=== PATIENT | female | born 1960 | race Caucasian/White ===

== ENCOUNTER → 2017-10-17 | Outpatient (CLI) | payer OTHER | END | disposition home or self-care (01) | LOC: KCIC MAMMO 08:07 | DX: Z12.31 Encounter for screening mammogram for malignant neoplasm of breast (principal) | CPT/HCPCS: 77063; 77067 ==

== ENCOUNTER → 2019-04-22 | Outpatient (CLI) | payer OTHER ==
--- NOTE | 2019-04-22 17:30 | KCIC ---
Bilateral digital screening mammograms with 3-D tomosynthesis: Reason for examination: Routine screening. Comparison is made to previous studies dated 10/17/2017 and 12/15/2015. Bilateral mammograms in CC and oblique projections were obtained with 2-D imaging and 3-D tomosynthesis imaging on a Siemens Inspiration unit and reviewed on the workstation. Interpretation was made with the benefit of CAD. The skin and nipples show no abnormalities. No abnormal axillary lymph nodes are seen. The breast parenchyma shows scattered fatty and fibroglandular density. (Breast density: Category B.) There are no dominant masses, suspicious calcifications or architectural distortion. Impression: No evidence of malignancy. Recommend routine screening. BI-RAD Category 1: Negative. "Our facility is accredited by the [employer] Mammography Program." This patient's information has been entered into a reminder system for the patient to be notified with the results of her examination and a target date for the next mammogram. Electronically signed by: Emily Degroot MD (04/22/2019 5:27 PM) [facility]
== END | disposition home or self-care (01) ==
LOC: KCIC MAMMO 15:51
PROVIDERS: ATTEND Family Medicine
DX: Z12.31 Encounter for screening mammogram for malignant neoplasm of breast (principal); N64.89 Other specified disorders of breast
CPT/HCPCS: 77063; 77067

== ENCOUNTER 2021-11-22 14:11 | Inpatient (IN) | payer OTHER ==
[2021-11-22] VITALS (8 sets, daily range): BP systolic 99–137; BP diastolic 36–57
[~2021-11-22] VITALS: Ht 162.6 cm; Wt 67.6 kg
[2021-11-22] MEDS ORDERED: IV NORMAL SALINE 1000ML BAG 1,000 ML IV SCH (15:15)
[2021-11-22] MEDS ORDERED: FAMOTIDINE 20 MG/2 ML VIAL IVP ONE (15:30)
[2021-11-22] MEDS ORDERED: ASPIRIN 325 MG TABLET PO ONE (15:30)
--- NOTE | 2021-11-22 15:31 | PHYS DOC ---
Past Medical History Past Surgical History: No Surgical History General Adult EDM: Chief Complaint: CHEST PAIN HPI: HPI: Patient is a 61 year old female who presents with chest pressure to the left and slightly mid chest area that she states will come and go for the last 4 days or so. She states she has had exertional shortness of breath since November 02 and when she is up and moving around she has to sit down and catch her breath because she gets very fatigued. She did had Covid back in October. States there was no major complications from that. Patient states that she is also noticed in the last 2 weeks that her left lower leg will swell up but if she puts it up the swelling gets better. She denies any pain with walking, calf pain, dizziness, syncope, fever, abdominal pain, nausea, vomiting, diarrhea, numbness or tingling, focal weakness, headache. Patient has a history of hypertension, Covid and hypothyroidism. Review of Systems: Review of Systems: Constitutional: Denies fever or chills. [] Eyes: Denies change in visual acuity. [] HENT: Denies nasal congestion or sore throat. [] Respiratory: Denies cough or + exertional shortness of breath. [] Cardiovascular: + chest pain pressure or +right lower extremity edema. [] GI: Denies abdominal pain, nausea, vomiting, bloody stools or diarrhea. [] : Denies dysuria. [] Musculoskeletal: Denies back pain or joint pain. + Generalized fatigue [] Integument: Denies rash. [] Neurologic: Denies headache, focal weakness or sensory changes. [] Endocrine: Denies polyuria or polydipsia. [] Lymphatic: Denies swollen glands. [] Psychiatric: Denies depression or anxiety. [] Heart Score: C/O Chest Pain: Yes HEART Score for Chest Pain: HEART Score for Chest Pain Response (Comments) Value History Moderately Suspicious 1 ECG Nonspecific Repolarizatio 1 Age >45 - < 65 1 Risk Factors 1 or 2 Risk Factors 1 Troponin < Normal Limit 0 Total 4 Risk Factors: Risk Factors: DM, Current or recent (<one month) smoker, HTN, HLP, family hist ory of CAD, obesity. Risk Scores: Score 0 - 3: 2.5% MACE over next 6 weeks - Discharge Home Score 4 - 6: 20.3% MACE over next 6 weeks - Admit for Clinical Observation Score 7 - 10: 72.7% MACE over next 6 weeks - Early Invasive Strategies Current Medications: Current Medications Medications (Trade) Dose Ordered Sig/Marshal Start Time Stop Time Status Last Admin Dose Admin Sodium Chloride 1,000 ml @ 1,000 mls/hr Q1H 11/22/21 15:15 11/22/21 16:14 Allergies: Allergies: Allergies Coded Allergies Type Severity Reaction Last Updated Verified No Known Drug Allergies 11/22/21 No Physical Exam: PE: Constitutional: Well developed, well nourished, no acute distress, non-toxic appearance. [] HENT: Normocephalic, atraumatic, bilateral external ears normal, oropharynx moist, no oral exudates, nose normal. [] Eyes: PERRLA, EOMI, conjunctiva normal, no discharge. [] Neck: Normal range of motion, no tenderness, supple, no stridor. [] Cardiovascular:Heart rate tachycardia regular rhythm, no murmur [] Lungs & Thorax: Bilateral upper breath sounds clear lower diminished to auscultation [] Abdomen: Bowel sounds normal, soft, no tenderness, no masses, no pulsatile masses. [] Skin: Warm, dry, no erythema, no rash. [] Back: No tenderness, no CVA tenderness. [] Extremities: No tenderness, no cyanosis, no clubbing, ROM intact, right lower extremity 2+ edema. No calf pain. Negative Homans' sign. [] Neurologic: Alert and oriented X 3, normal motor function, normal sensory function, no focal deficits noted. [] Psychologic: Affect normal, judgement normal, mood normal. [] Current Patient Data: Vital Signs: Vital Signs Date Time Temp Pulse Resp B/P (MAP) Pulse Ox O2 Delivery O2 Flow Rate FiO2 11/22/21 14:12 98.1 119 22 150/62 (91) 100 Room Air 98.1 EKG: EK and read by Dr. Kathleen as sinus tachycardia at 114, diffuse ST depressions, no STEMI Radiology/Procedures: Radiology/Procedures: [] Impression: [facility] [address] [place], [place] [id number] IMAGING REPORT Signed PATIENT: DIMITRI YEN ACCOUNT: [id number] : 1960 LOCATION: ER AGE: 61 SEX: F EXAM STATUS: REG ER ORD. PHYSICIAN: MILES ZIMMERMAN APRN REASON: SWELLING PROCEDURE: VENOUS LOWER EXTREMITY RIGHT EXAM: Right lower extremity venous Doppler. HISTORY: Right lower extremity pain/swelling. COMPARISON: None. FINDINGS: Grayscale and Doppler analysis of the right lower extremity deep venous system was performed with graded compression and augmentation. The common femoral, greater saphenous, superficial femoral, popliteal and calf veins were assessed. Occlusive deep venous thrombosis extends from the right popliteal vein to the calf veins. IMPRESSION: 1. Occlusive deep venous thrombosis within the right popliteal vein extending to the calf veins. These findings were called to Dr. Zimmerman by José Luis Rodriguez on 11/22/2021 at 4:04 PM. Electronically signed by: Silvano Rodriguez MD (11/22/2021 4:04 PM) [facility] DICTATED and SIGNED BY: SANTOS RODRIGUEZ MD DATE: 11/22/21 [id number] 0 [facility] [address] [place], [place] [id number] IMAGING REPORT Signed PATIENT: DIMITRI YEN ACCOUNT: [id number] : 1960 LOCATION: ER AGE: 61 SEX: F EXAM STATUS: REG ER ORD. PHYSICIAN: MILES ZIMMERMAN APRN REASON: CHEST PAIN, SOA PROCEDURE: PORTABLE CHEST 1V EXAM: Chest, single view. HISTORY: Chest pain. Shortness of air. COMPARISON: None. FINDINGS: A frontal view of the chest is obtained. There is no infiltrate, pleural effusion or pneumothorax. The heart is normal in size. IMPRESSION: No acute pulmonary finding. Electronically signed by: Flakita Correia MD (11/22/2021 3:46 PM) [id number] DICTATED and SIGNED BY: FLAKITA CORREIA MD DATE: 11/22/21 [id number] 0 [facility] [address] [place], [place] [id number] IMAGING REPORT Signed PATIENT: DIMITRI YEN ACCOUNT: [id number] : 1960 LOCATION: ER AGE: 61 SEX: F EXAM STATUS: REG ER ORD. PHYSICIAN: MILES ZIMMERMAN APRN REASON: CHEST PAIN, SOA, TACHYCARDIA PROCEDURE: CT ANGIO CHEST W ABD PEL W/ Exam: CT of chest, abdomen and pelvis with contrast INDICATION: Chest pain, short of air, tachycardia TECHNIQUE: Sequential axial images through the chest, abdomen and pelvis obtained following the administration of 90 mL of Isovue-370 IV contrast. Sagittal and coronal reformatted images were reconstructed from the axial data and reviewed. 3-D reformatted images were reconstructed from the axial data and reviewed. Exposure: One or more of the following in the visualized dose reduction techniques were utilized for this examination: 1. Automated exposure control 2. Adjustment of the MA and/or KV according to patient size 3. Use of iterative of reconstructive technique Comparisons: Chest x-ray same day FINDINGS: Visualized portions of the thyroid are unremarkable. No enlarged mediastinal lymph nodes are identified. Heart size is normal. No pericardial effusion. Mild coronary artery calcifications. Thoracic aorta has normal course and caliber. Pulmonary artery is not enlarged. No pulmonary embolus identified within the main, lobar or segmental pulmonary arteries. Airways are patent. Patchy groundglass opacity noted at the dependent portion of the left lower lobe. No pneumothorax. No suspicious lung nodules. No pleural effusion or thickening. Liver, spleen, pancreas, gallbladder and adrenals are unremarkable. There is moderate right-sided hydronephrosis with abrupt transition of the dilated ureter at the right ureteropelvic junction. No renal or ureteral calculi are identified. Bladder is partially distended and not well evaluated. Uterus is not enlarged. No abnormal adnexal mass. Large and small bowel are unremarkable. Appendix is normal. No free intra- abdominal air or fluid. No obstruction. Abdominal aorta has a normal course and caliber. Abdominal vasculature is patent. No enlarged intra-abdominal lymph nodes are identified. No suspicious osseous lesions or acute fractures. IMPRESSION: 1. No pulmonary embolus identified within the main, lobar or segmental pulmonary arteries. 2. Moderate right-sided hydronephrosis with findings of UPJ obstruction. Stone is not identified, may relate to stricture. 3. Subtle patchy groundglass opacity noted at the left lower lobe may be infectious or inflammatory in etiology. Electronically signed by: Tatyana Hodges MD (11/22/2021 4:52 PM) [facility] DICTATED and SIGNED BY: TATYANA HODGES MD DATE: 11/22/21 [id number] 0 Course & Med Decision Making: Course & Med Decision Making Pertinent Labs and Imaging studies reviewed. (See chart for details) COVID-19 CRITERIA: The patient was evaluated during the global COVID-19 pandemic, and that diagnosis was suspected/considered upon their initial presentation. Their evaluation, treatment and testing was consistent with current guidelines for patients who present with complaints or symptoms that may be related to COVID-19. See HPI. Alert and oriented x4. Ambulatory to steady gait. Speaks in full clear sentences. Ambulatory with a steady gait. She is tachycardic. She is not on any kind of blood thinner. Left lower extremity 2+ swelling. No calf tenderness and negative Homans' sign. Pedal pulse strong present. Cap refill less than 2 seconds. Skin pink warm and dry. Lungs are clear in upper lobes and diminished in lower lobes. Patient's hemoglobin is low at 5.4. She states that she does not have any. Sent has not had any heavy vaginal bleeding. She states she does have some hemorrhoids and about 4 days ago she noticed a little bit of blood in the toilet but states that happens from time to time. She states she has not had any since then. She denies seeing any blood in her urine. She denies any abdominal pain or nausea and vomiting. She does not take blood thinners. Because of this I have held the aspirin that I was going to give her for chest pain. Also the ultrasound of her left lower extremity shows a DVT. Rectal Exam: Normal tone, No mass, Positive control Stool: Brown Guaiac: Negative Per Dr Kathleen ok to hold off on heparin until patient starts receiving blood. Patient is admitted to the hospitalist. [] Marcy Disclaimer: Marcy Disclaimer: This electronic medical record was generated, in whole or in part, using a voice recognition dictation system. COVID-19 Patient Risks: Age 65 or older: No Sign of co-morbidity: Yes Exp to person + for COVID: No Exp to PUI: No Travel from affected area: No Lower respiratory symptoms: Yes Fever: No Other: No PPE Use: Full PPE with N95 mask or PAPR: Yes Departure Departure Impression: Primary Impression: Low hemoglobin Additional Impressions: DVT (deep venous thrombosis) Qualified Codes: I82.432 - Acute embolism and thrombosis of left popliteal vein UPJ stricture, acquired Hydronephrosis Qualified Codes: Q62.11 - Congenital occlusion of ureteropelvic junction Disposition: 09 ADMITTED INPATIENT Admitting Physician: WENCESLAO Condition: STABLE Referrals: WALDO NAVARRETE MD (PCP) MILES ZIMMERMAN APRN Nov 22, 2021 15:31
[2021-11-22 15:32] LABS: BASO % 0 % (0-3); EOS # 0.1 x10^3/uL (0.0-0.7); EOS % 2 % (0-3); HEMATOCRIT 14.8 % (36.0-47.0); LYMPH # 0.8 x10^3/uL (1.0-4.8); LYMPH % 16 % (24-48); MEAN CORPUSCULAR HEMOGLOBIN 48 pg (25-35); MEAN CORPUSCULAR HGB CONC 37 g/dL (31-37); MEAN CORPUSCULAR VOLUME 132 fL (79-100); MONO # 0.2 x10^3/uL (0.0-1.1); MONO % 4 % (0-9); NEUT # 3.8 x10^3/uL (1.8-7.7); NEUT % 78 % (31-73); PLATELET COUNT 247 x10^3/uL (140-400); RED BLOOD COUNT 1.12 x10^6/uL (3.50-5.40); RED CELL DISTRIBUTION WIDTH 14.3 % (11.5-14.5); WHITE BLOOD COUNT 4.8 x10^3/uL (4.0-11.0)
[2021-11-22 15:43] LABS: CALCIUM 8.3 mg/dL (8.5-10.1); CREATININE 0.8 mg/dL (0.6-1.0); GFR 72.9; POTASSIUM 3.6 mmol/L (3.5-5.1)
[2021-11-22 15:45] LABS: HEMOGLOBIN 5.4 g/dL (12.0-15.5)
[2021-11-22 15:48] LABS: ALBUMIN 3.9 g/dL (3.4-5.0); ALBUMIN/GLOBULIN RATIO 1.1 (1.0-1.7); TOTAL BILIRUBIN 1.5 mg/dL (0.2-1.0); TOTAL PROTEIN 7.3 g/dL (6.4-8.2)
--- NOTE | 2021-11-22 15:49 | RAD ---
EXAM: Chest, single view. HISTORY: Chest pain. Shortness of air. COMPARISON: None. FINDINGS: A frontal view of the chest is obtained. There is no infiltrate, pleural effusion or pneumo thorax. The heart is normal in size. IMPRESSION: No acute pulmonary finding. Electronically signed by: Flakita Zhang MD (11/22/2021 3:46 PM) [id number]
[2021-11-22] MEDS ORDERED: CONTRAST GIVEN. MC PRN (16:00)
[2021-11-22] MEDS ORDERED: IOHEXOL 350 MG/ML 100 ML VIAL. IV ONE (16:00)
--- NOTE | 2021-11-22 16:07 | RAD ---
EXAM: Right lower extremity venous Doppler. HISTORY: Right lower extremity pain/swelling. COMPARISON: None. FINDINGS: Grayscale and Doppler analysis of the right lower extremity deep venous system was performe d with graded compression and augmentation. The common femoral, greater saphenous, superficial femora l, popliteal and calf veins were assessed. Occlusive deep venous thrombosis extends from the right popliteal vein to the calf veins. IMPRESSION: 1. Occlusive deep venous thrombosis within the right popliteal vein extending to the calf veins. These findings were called to Dr. Zimmerman by José Luis Rodriguez on 11/22/2021 at 4:04 PM. Electronically signed by: Silvano Rodriguez MD (11/22/2021 4:04 PM) [facility]
[2021-11-22 16:41] LABS: FECAL OB PT NEGATIVE (NEG)
--- NOTE | 2021-11-22 16:55 | RAD ---
Exam: CT of chest, abdomen and pelvis with contrast INDICATION: Chest pain, short of air, tachycardia TECHNIQUE: Sequential axial images through the chest, abdomen and pelvis obtained following the admin istration of 90 mL of Isovue-370 IV contrast. Sagittal and coronal reformatted images were reconstruc luis enrique from the axial data and reviewed. 3-D reformatted images were reconstructed from the axial data a nd reviewed. Exposure: One or more of the following in the visualized dose reduction techniques were utilized for this examination: 1. Automated exposure control 2. Adjustment of the MA and/or KV according to patient size 3. Use of iterative of reconstructive technique Comparisons: Chest x-ray same day FINDINGS: Visualized portions of the thyroid are unremarkable. No enlarged mediastinal lymph nodes are identifi ed. Heart size is normal. No pericardial effusion. Mild coronary artery calcifications. Thoracic aorta sin s normal course and caliber. Pulmonary artery is not enlarged. No pulmonary embolus identified within the main, lobar or segmental pulmonary arteries. Airways are patent. Patchy groundglass opacity noted at the dependent portion of the left lower lobe. No pneumothorax. No suspicious lung nodules. No pleural effusion or thickening. Liver, spleen, pancreas, gallbladder and adrenals are unremarkable. There is moderate right-sided hydronephrosis with abrupt transition of the dilated ureter at the righ t ureteropelvic junction. No renal or ureteral calculi are identified. Bladder is partially distended and not well evaluated. Uterus is not enlarged. No abnormal adnexal ma ss. Large and small bowel are unremarkable. Appendix is normal. No free intra-abdominal air or fluid. No obstruction. Abdominal aorta has a normal course and caliber. Abdominal vasculature is patent. No enlarged intra-abdominal lymph nodes are identified. No suspicious osseous lesions or acute fractures. IMPRESSION: 1. No pulmonary embolus identified within the main, lobar or segmental pulmonary arteries. 2. Moderate right-sided hydronephrosis with findings of UPJ obstruction. Stone is not identified, ma y relate to stricture. 3. Subtle patchy groundglass opacity noted at the left lower lobe may be infectious or inflammatory in etiology. Electronically signed by: Tatyana Ward MD (11/22/2021 4:52 PM) [facility]
[2021-11-22 17:08] LABS: PROTHROMBIN TIME PATIENT 13.5 SEC (11.7-14.0)
[2021-11-22] MEDS ORDERED: ONDANSETRON PF 4 MG/2 ML VIAL. IVP PRN ×2 (17:15→19:30)
[2021-11-22] MEDS ORDERED: ACETAMINOPHEN 325 MG TABLET. PO PRN ×2 (17:15→19:30)
[2021-11-22] MEDS ORDERED: CYANOCOBALAMIN (VITAMIN B-12) 1,000 MCG/ML VIAL. IM ONE (19:00)
[2021-11-22] MEDS ORDERED: HEPARIN for IV BOLUS 10,000 UNIT/10 ML VIAL. IV PRN ×2 (19:15)
--- NOTE | 2021-11-22 19:23 | PDOC1 ---
History and Physical Date of Service: DOS: DATE: 11/22/21 TIME: 19:12 Chief Complaint: Chief Complain: sob, fatigue History of Present Illness: HPI: Patient is 61-year-old female who presented to the emergency room today due to chest pain for 3 to 5 days and shortness of breath and weakness that has been going on for about a month. Patient reports that she had Covid in October and has had exertional shortness of breath ever since then. Frequently has to sit down to catch her breath when doing any activity. Patient also reports that since this she has noticed left lower extremity swelling. Works from home sits down most of the day and notices that her left leg in particular will be notably swollen by the end of the day. However reports with elevation the swelling improves. In ER duplex scan showed left lower extremity DVT. On presentation patient also notably anemic. Hemoglobin around 5.4. Patient denies any known bleeding anywhere. Work-up showed MCV 132 and a low B12. Patient has had decreased p.o. intake ever since her Covid episode. Denies any vegetarian diet. Says she frequently eats meat but has been eating much less ever since COVID as it just does not sound good to her. Past Medical/Surgical History: PMH/PSH: Hypothyroid Allergies: Allergies: Coded Allergies: No Known Drug Allergies (Unverified , 11/22/21) Family History: Family History: Hypertension Social History: Social History: Denies alcohol tobacco drug use Current Medications: Current Medications Current Medications Sodium Chloride 1,000 ml @ 1,000 mls/hr Q1H IV Last administered on 11/22/21at 15:32; Start 11/22/21 at 15:15; Stop 11/22/21 at 16:14; Status DC Aspirin (Dario Aspirin) 325 mg 1X ONCE PO ; Start 11/22/21 at 15:30; Stop at 15:51; Status DC Famotidine (Pepcid Vial) 20 mg 1X ONCE IVP Last administered on 11/22/21at 15:49; Start 11/22/21 at 15:30; Stop 11/22/21 at 15:32; Status DC Iohexol (Omnipaque 350 Mg/ml) 90 ml 1X ONCE IV Last administered on 11/22/21at 16:03; Start 11/22/21 at 16:00; Stop 11/22/21 at 16:01; Status DC Info (CONTRAST GIVEN -- Rx MONITORING) 1 each PRN DAILY PRN MC SEE COMMENTS; Start 11/22/21 at 16:00; Stop 11/24/21 at 15:59 Ondansetron HCl (Zofran) 4 mg PRN Q8HRS PRN IVP NAUSEA/VOMITING; Start 11/22/21 at 17:15; Stop 11/23/21 at 17:14 Acetaminophen (Tylenol) 650 mg PRN Q4HRS PRN PO FEVER > 100.3'F; Start 11/22/21 at 17:15; Stop 11/23/21 at 17:14 Cyanocobalamin (Vitamin B-12 Inj) 1,000 mcg 1X ONCE IM ; Start 11/22/21 at 19:00; Stop 11/22/21 at 19:01; Status DC Vitamin B Complex (Folbic Tablet) 1 tab DAILY PO ; Start 11/23/21 at 09:00 ROS: Review of Systems Review of System Unless noted in HPI 14 point review of systems was negative Physical Exam: Vital Signs: Vital Signs Date Time Temp Pulse Resp B/P (MAP) Pulse Ox O2 Delivery O2 Flow Rate FiO2 11/22/21 18:50 106 16 127/48 11/22/21 18:46 98.8 98.8 11/22/21 16:12 100 Room Air Physcial Exam: GEN: No apparent distress. Alert and oriented HEENT: Normal cephalic, atraumatic, external auditory canals are patent EYES: Extraocular muscles are intact, pupil are equally round and reactive to light and accommodation MUSCULOSKELETAL: Well developed , well nourished, good range of motion ENDOCRINE: No thyromegaly was palpated LYMPHATICS: No cervical chain or axillary nodes were noted HEMATOPOIETIC: No bruising NECK: Supple, no JVD, no thyromegaly was noted LUNGS: Clear to auscultation in all lung vogt without rhonchi or wheezing HEART: RRR, S!, S2 present. Peripheral pulses intact, no obvious murmurs noted ABDOMEN: Soft, nontender. Positive bowel sounds, no organomegaly, normal bowel sounds EXTREMITIES: Without clubbing, cyanosis, or edema. Pedal pulses intact. Negative Homans sign NEUROLOGIC: Normal speech and tone. A&O x 3, moves all extremities, no obvious focal deficits PSYCHIATRIC: Normal affect, normal mood. Stable SKIN: No ulcerations or rashes, good skin turgor, no jaundice VASCULAR: Good capillary refill, neurovascular bundle appears to be intact Labs: Labs: Laboratory Tests Test 11/22/21 15:10 11/22/21 16:28 11/22/21 18:40 White Blood Count 4.8 x10^3/uL (4.0-11.0) Red Blood Count 1.12 x10^6/uL (3.50-5.40) Hemoglobin 5.4 g/dL (12.0-15.5) Hematocrit 14.8 % (36.0-47.0) Mean Corpuscular Volume 132 fL (79-100) Mean Corpuscular Hemoglobin 48 pg (25-35) Mean Corpuscular Hemoglobin Concent 37 g/dL (31-37) Red Cell Distribution Width 14.3 % (11.5-14.5) Platelet Count 247 x10^3/uL (140-400) Neutrophils (%) (Auto) 78 % (31-73) Lymphocytes (%) (Auto) 16 % (24-48) Monocytes (%) (Auto) 4 % (0-9) Eosinophils (%) (Auto) 2 % (0-3) Basophils (%) (Auto) 0 % (0-3) Neutrophils # (Auto) 3.8 x10^3/uL (1.8-7.7) Lymphocytes # (Auto) 0.8 x10^3/uL (1.0-4.8) Monocytes # (Auto) 0.2 x10^3/uL (0.0-1.1) Eosinophils # (Auto) 0.1 x10^3/uL (0.0-0.7) Basophils # (Auto) 0.0 x10^3/uL (0.0-0.2) Prothrombin Time 13.5 SEC (11.7-14.0) Prothromb Time International Ratio 1.0 (0.8-1.1) Activated Partial Thromboplast Time 26 SEC (24-38) Sodium Level 136 mmol/L (136-145) Potassium Level 3.6 mmol/L (3.5-5.1) Chloride Level 99 mmol/L (98-107) Carbon Dioxide Level 25 mmol/L (21-32) Anion Gap 12 (6-14) Blood Urea Nitrogen 22 mg/dL (7-20) Creatinine 0.8 mg/dL (0.6-1.0) Estimated GFR (Cockcroft-Gault) 72.9 BUN/Creatinine Ratio 28 (6-20) Glucose Level 95 mg/dL (70-99) Calcium Level 8.3 mg/dL (8.5-10.1) Iron Level 176 ug/dL (50-170) Total Iron Binding Capacity 287 ug/dL (250-450) Iron Saturation 61 % (15-34) Total Bilirubin 1.5 mg/dL (0.2-1.0) Aspartate Amino Transf (AST/SGOT) 25 U/L (15-37) Alanine Aminotransferase (ALT/SGPT) 21 U/L (14-59) Alkaline Phosphatase 60 U/L (46-116) Troponin I High Sensitivity 30 ng/L (4-50) KS-Eux-C-Type Natriuretic Peptide 624 pg/mL (0-124) Total Protein 7.3 g/dL (6.4-8.2) Albumin 3.9 g/dL (3.4-5.0) Albumin/Globulin Ratio 1.1 (1.0-1.7) Vitamin B12 Level 101 pg/mL (247-911) Serum Folate 13.64 ng/ml (3.2-20.0) Stool Occult Blood Negative (NEG) SARS-CoV-2 Antigen (Rapid) Negative (NEGATIVE) Laboratory Tests Test 11/22/21 15:10 11/22/21 16:28 11/22/21 18:40 White Blood Count 4.8 x10^3/uL (4.0-11.0) Red Blood Count 1.12 x10^6/uL (3.50-5.40) Hemoglobin 5.4 g/dL (12.0-15.5) Hematocrit 14.8 % (36.0-47.0) Mean Corpuscular Volume 132 fL (79-100) Mean Corpuscular Hemoglobin 48 pg (25-35) Mean Corpuscular Hemoglobin Concent 37 g/dL (31-37) Red Cell Distribution Width 14.3 % (11.5-14.5) Platelet Count 247 x10^3/uL (140-400) Neutrophils (%) (Auto) 78 % (31-73) Lymphocytes (%) (Auto) 16 % (24-48) Monocytes (%) (Auto) 4 % (0-9) Eosinophils (%) (Auto) 2 % (0-3) Basophils (%) (Auto) 0 % (0-3) Neutrophils # (Auto) 3.8 x10^3/uL (1.8-7.7) Lymphocytes # (Auto) 0.8 x10^3/uL (1.0-4.8) Monocytes # (Auto) 0.2 x10^3/uL (0.0-1.1) Eosinophils # (Auto) 0.1 x10^3/uL (0.0-0.7) Basophils # (Auto) 0.0 x10^3/uL (0.0-0.2) Prothrombin Time 13.5 SEC (11.7-14.0) Prothromb Time International Ratio 1.0 (0.8-1.1) Activated Partial Thromboplast Time 26 SEC (24-38) Sodium Level 136 mmol/L (136-145) Potassium Level 3.6 mmol/L (3.5-5.1) Chloride Level 99 mmol/L (98-107) Carbon Dioxide Level 25 mmol/L (21-32) Anion Gap 12 (6-14) Blood Urea Nitrogen 22 mg/dL (7-20) Creatinine 0.8 mg/dL (0.6-1.0) Estimated GFR (Cockcroft-Gault) 72.9 BUN/Creatinine Ratio 28 (6-20) Glucose Level 95 mg/dL (70-99) Calcium Level 8.3 mg/dL (8.5-10.1) Iron Level 176 ug/dL (50-170) Total Iron Binding Capacity 287 ug/dL (250-450) Iron Saturation 61 % (15-34) Total Bilirubin 1.5 mg/dL (0.2-1.0) Aspartate Amino Transf (AST/SGOT) 25 U/L (15-37) Alanine Aminotransferase (ALT/SGPT) 21 U/L (14-59) Alkaline Phosphatase 60 U/L (46-116) Troponin I High Sensitivity 30 ng/L (4-50) PZ-Amu-U-Type Natriuretic Peptide 624 pg/mL (0-124) Total Protein 7.3 g/dL (6.4-8.2) Albumin 3.9 g/dL (3.4-5.0) Albumin/Globulin Ratio 1.1 (1.0-1.7) Vitamin B12 Level 101 pg/mL (247-911) Serum Folate 13.64 ng/ml (3.2-20.0) Stool Occult Blood Negative (NEG) SARS-CoV-2 Antigen (Rapid) Negative (NEGATIVE) Assessment/Plan Assessment/Plan Fatigue shortness of breath secondary to macrocytic anemia vs Covid long hauler?, UPJ obstruction, chest pain, history of hypothyroid -Presenting with worsening fatigue and shortness of breath. Notably anemic in emergency room. Covid positive in October -Hemoglobin 5.4 in emergency room. Transfuse 2 units -Macrocytic on lab evaluation with B12 deficiency. B12 shot and B complex vitamins started -No alcohol use or vegetarian diet to contribute to B12 deficiency -CT scan in emergency room did show a UPJ obstruction. Urology consulted -No apparent bleeding from anywhere at this point -Regular diet -We will start heparin thrombotic protocol once 1 unit of blood is transfused 21 minutes advance care planning Justifications for Admission Other Justification ALBERTO LUNA MD Nov 22, 2021 19:23
[2021-11-22] MEDS ORDERED: CALCIUM CARBONATE 500 MG TAB.CHEW PO PRN (19:30)
[2021-11-22] MEDS ORDERED: ZOLPIDEM 5 MG TABLET. PO PRN (19:30)
[2021-11-22] MEDS ORDERED: oxyCODONE/APAP 5/325 1 TAB TABLET PO PRN ×2 (19:30)
[2021-11-22] MEDS ORDERED: ELECTROLYTE (NON-ICU) PROTOCOL. MC PRN (19:30)
[2021-11-22 19:37] LABS: PLT ESTIMATE ADEQUATE (ADEQUATE)
[2021-11-22 19:38] LABS: OVALOCYTES FEW
[2021-11-22 19:39] LABS: BIZZARE CELLS FEW; TEAR DROP CELLS OCC
--- NOTE | 2021-11-22 19:43 | EKG ---
[facility] [address] [place] [address] Test Date: 2021-11-22 Test Time: 14:23:08 Pat Name: DIMITRI YEN Department: Room: [facility] Gender: F Feather Shaper: : 1960 Requested By: SANTOS SHARMA Order Number: [id number] Reading MD: Dano Peres MD Measurements Intervals [place] Rate: 114 P: 22 CA: 154 QRS: 54 QRSD: 86 T: 52 QT: 330 QTc: 458 Interpretive Statements SINUS TACHYCARDIA CONSIDER SUBENDOCARDIAL ISCHEMIA Electronically Signed On 11-29-2021 16:20:00 CHEMICAL HANDLER by Dano Peres MD
[2021-11-22] MEDS: SENNOSIDES/DOCUSATE 8.6/50MG TABLET. PO SCH (21:00)
[2021-11-22] MEDS ORDERED: LISI10TA16 PO (22:19)
[2021-11-22] MEDS ORDERED: LEVO125T5 PO (22:19)
--- NOTE | 2021-11-22 23:12 | NUR ---
This RN got a call from Chemistry ([id number]) with a Trop of 67, previous Trop was 33. This RN notified Dr. Begum at [phone], and labs are being re-drawn in am.
[2021-11-23] MEDS: HEPARIN 25,000UTS/250ML PREMIX 250 ML IV PRN ×2 (01:38→23:02)
[2021-11-23 03:00] VITALS: BP 121/57
[2021-11-23 07:00] VITALS: BP 118/50
[2021-11-23 08:57] LABS: HEMATOCRIT 23.3 % (36.0-47.0); RED BLOOD COUNT 2.12 x10^6/uL (3.50-5.40); RED CELL DISTRIBUTION WIDTH 33.3 % (11.5-14.5); WHITE BLOOD COUNT 4.6 x10^3/uL (4.0-11.0)
[2021-11-23] MEDS: SENNOSIDES/DOCUSATE 8.6/50MG TABLET. PO SCH ×2 (09:00→21:00)
[2021-11-23] MEDS: VITAMIN B12,B9,B6 COMPLEX 1 TABLET. PO SCH (09:05)
--- NOTE | 2021-11-23 10:45 | PDOC2 ---
SALVADOR GREENWOOD PHYSICIAN INTERVENTIONAL CARDIOLOGIST 11/23/21 1045: CARDIAC CONSULT DATE OF CONSULT Date of Consult DATE: 11/23/21 TIME: 10:42 REASON FOR CONSULT Reason for Consult: Chest pain REFERRING PHYSICIAN Referring Physician: Dr. Begum SOURCE Source: Chart review, Patient HISTORY OF PRESENT ILLNESS HISTORY OF PRESENT ILLNESS This is a 61 yo female who presented secondary to chest pain. Patient reports suspecting having COVID last month. Was very fatigued, weak and has poor appetite with some weight loss. Reports development of significant shortness of breath with exertional activities and palpitations. Reports feeling her heart race with exertion. Reports this would resolved with rest. Over the last week, has experienced some pressure in her central chest and continued to have palpitations with exertion so she called her PCP who recommended she go to the ED for further evaluation and treatment. Denies any associated dizziness, diaphoresis, or nausea/vomiting. Pain did not radiate. Was noted to be anemic upon arrival with hgb of 5.4. Received 2 units of blood. Chest pressure and palpitations have resolved post transfusion. Troponin noted to be mildly elevated, which prompted this consult. Also noted with RLE DVT and is on heparin gtt. PAST MEDICAL HISTORY Cardiovascular: HTN Endocrine: Hypothyroidism PAST SURGICAL HISTORY Past Surgical History: No pertinent history FAMILY HISTORY Family History: Diabetes, Hypertension SOCIAL HISTORY Smoke: No ALCOHOL: none Drugs: None Lives: with Family CURRENT MEDICATIONS CURRENT MEDICATIONS Current Medications Medications (Trade) Dose Ordered Sig/Marshal Route PRN Reason Start Time Stop Time Status Last Admin Dose Admin Sodium Chloride 1,000 ml @ 1,000 mls/hr Q1H IV 11/22/21 15:15 11/22/21 16:14 DC 11/22/21 15:32 Famotidine (Pepcid Vial) 20 mg 1X ONCE IVP 11/22/21 15:30 11/22/21 15:32 DC 11/22/21 15:49 Iohexol (Omnipaque 350 Mg/ml) 90 ml 1X ONCE IV 11/22/21 16:00 11/22/21 16:01 DC 11/22/21 16:03 Vitamin B Complex (Folbic Tablet) 1 tab DAILY PO 11/23/21 09:00 11/23/21 09:05 Heparin Sodium/ Dextrose 250 ml @ 10.816 mls/ hr CONT PRN IV PER PROTOCOL 11/22/21 19:15 11/23/21 01:38 Heparin Sodium (Porcine) (Heparin Sodium) 2,050 unit PRN Q6HRS PRN IV FOR UFH LEVEL LESS THAN 0.2 11/22/21 19:15 11/23/21 10:09 ALLERGIES ALLERGIES: Coded Allergies: No Known Drug Allergies (Unverified , 11/22/21) ROS Review of System 14 point ROS conducted with pertinent positives noted above in HPI PHYSICAL EXAM General: Alert, Oriented X3, Cooperative, No acute distress HEENT: Atraumatic, Mucous membr. moist/pink Lungs: Clear to auscultation Heart: Regular rate Abdomen: Soft, No tenderness Extremities: No edema, Normal pulses Skin: No significant lesion Neuro: Normal speech, Sensation intact Psych/Mental Status: Mental status NL, Mood NL MUSCULOSKELETAL: Osteoarthritic changes both hands VITALS/I&O VITALS/I&O: Vital Signs Date Time Temp Pulse Resp B/P (MAP) Pulse Ox O2 Delivery O2 Flow Rate FiO2 11/23/21 07:00 98.1 64 17 118/50 (72) 99 Room Air 98.1 I & O 11/22/21 11/22/21 11/23/21 15:00 23:00 07:00 Intake Total 1120 ml 500 ml Output Total 0 ml Balance 1120 ml 500 ml LABS Lab: Laboratory Tests Test 11/22/21 15:10 11/22/21 16:28 11/22/21 18:00 11/22/21 18:40 White Blood Count 4.8 x10^3/uL (4.0-11.0) Red Blood Count 1.12 x10^6/uL (3.50-5.40) L Hemoglobin 5.4 g/dL (12.0-15.5) *L Hematocrit 14.8 % (36.0-47.0) L Mean Corpuscular Volume 132 fL (79-100) H Mean Corpuscular Hemoglobin 48 pg (25-35) H Mean Corpuscular Hemoglobin Concent 37 g/dL (31-37) Red Cell Distribution Width 14.3 % (11.5-14.5) Platelet Count 247 x10^3/uL (140-400) Neutrophils (%) (Auto) 78 % (31-73) H Lymphocytes (%) (Auto) 16 % (24-48) L Monocytes (%) (Auto) 4 % (0-9) Eosinophils (%) (Auto) 2 % (0-3) Basophils (%) (Auto) 0 % (0-3) Neutrophils # (Auto) 3.8 x10^3/uL (1.8-7.7) Lymphocytes # (Auto) 0.8 x10^3/uL (1.0-4.8) L Monocytes # (Auto) 0.2 x10^3/uL (0.0-1.1) Eosinophils # (Auto) 0.1 x10^3/uL (0.0-0.7) Basophils # (Auto) 0.0 x10^3/uL (0.0-0.2) Platelet Estimate Adequate (ADEQUATE) Basophilic Stippling Present Macrocytosis Marked Tear Drop Cells Occ Ovalocytes Few RBC Morphology Bizarre Forms Few Prothrombin Time 13.5 SEC (11.7-14.0) Prothrombin Time INR 1.0 (0.8-1.1) Activated Partial Thromboplast Time 26 SEC (24-38) Sodium Level 136 mmol/L (136-145) Potassium Level 3.6 mmol/L (3.5-5.1) Chloride Level 99 mmol/L (98-107) Carbon Dioxide Level 25 mmol/L (21-32) Anion Gap 12 (6-14) Blood Urea Nitrogen 22 mg/dL (7-20) H Creatinine 0.8 mg/dL (0.6-1.0) Estimated GFR (Cockcroft-Gault) 72.9 BUN/Creatinine Ratio 28 (6-20) H Glucose Level 95 mg/dL (70-99) Calcium Level 8.3 mg/dL (8.5-10.1) L Iron Level 176 ug/dL (50-170) H Total Iron Binding Capacity 287 ug/dL (250-450) Iron Saturation 61 % (15-34) H Total Bilirubin 1.5 mg/dL (0.2-1.0) H Aspartate Amino Transferase (AST) 25 U/L (15-37) Alanine Aminotransferase (ALT) 21 U/L (14-59) Alkaline Phosphatase 60 U/L (46-116) Troponin I High Sensitivity 30 ng/L (4-50) 33 ng/L (4-50) QL-Zhj-I-Type Natriuretic Peptide 624 pg/mL (0-124) H Total Protein 7.3 g/dL (6.4-8.2) Albumin 3.9 g/dL (3.4-5.0) Albumin/Globulin Ratio 1.1 (1.0-1.7) Vitamin B12 Level 101 pg/mL (247-911) L Serum Folate 13.64 ng/ml (3.2-20.0) Thyroid Stimulating Hormone (TSH) 0.007 uIU/mL (0.358-3.74) L Stool Occult Blood Negative (NEG) SARS-CoV-2 Antigen (Rapid) Negative (NEGATIVE) Test 11/22/21 21:20 11/23/21 08:25 Troponin I High Sensitivity 67 ng/L (4-50) H 245 ng/L (4-50) H White Blood Count 4.6 x10^3/uL (4.0-11.0) Red Blood Count 2.12 x10^6/uL (3.50-5.40) L Hemoglobin 8.0 g/dL (12.0-15.5) #L Hematocrit 23.3 % (36.0-47.0) L Mean Corpuscular Volume 110 fL (79-100) #H Mean Corpuscular Hemoglobin 38 pg (25-35) H Mean Corpuscular Hemoglobin Concent 35 g/dL (31-37) Red Cell Distribution Width 33.3 % (11.5-14.5) H Platelet Count 206 x10^3/uL (140-400) Heparin Anti-Xa Act, Unfractionated 0.12 IU/mL (0.30-0.70) L Laboratory Tests 11/22/21 15:10 11/23/21 08:25 Laboratory Tests 11/22/21 15:10 ASSESSMENT/PLAN ASSESSMENT/PLAN 1. Chest pain/pressure, palpitations in the setting of significant anemia; hgb 5.4 upon arrival. s/p 2 units PRBCs. hgb stable. No obvious bleeding 2. Elevated troponin; highest 245. Most probably type II, demand ischemia in setting of above. EKG noted with sinus tachycardia. Is presently SR 3. RLE DVT; on heparin gtt 4. Hypertension; controlled 5. Hypothyroidism 6. Right-sided hydronephrosis wtih concerns of right-sided UPJ obstruction; incidental finding. urology following 7. Recent suspected COVID infection; on RA Recommendations Trend trop to noted peak Echo to assess LV systolic function Lipids Probable outpatient ischemic evaluation Anticoagulation therapy for DVT as per IM Supportive care BINU URRUTIA MD 11/23/21 1407: CARDIAC CONSULT ASSESSMENT/PLAN ASSESSMENT/PLAN Patient seen and examined. Agree with GPS NAVIGATION INSTALLER's assessment and plan Chest pain with atypical features NSTEMI prob demand ischemia from severe anemia Palpitations probably physiology sinus tachy due to anemia Cont heparin for DVT Check 2D echo to assess LVF and rule out WMA We will consider outpatient ischemic evaluation Thank you for your consultation SALVADOR GREENWOOD APRN Nov 23, 2021 10:45 BINU URRUTIA MD Nov 23, 2021 14:07
[2021-11-23 11:00] VITALS: BP 110/44
--- NOTE | 2021-11-23 11:36 | PDOC ---
[employer] PROGRESS NOTE Date of Service DOS: DATE: 11/23/21 TIME: 11:32 Chief Complaint Chief Complaint Fatigue shortness of breath secondary to macrocytic anemia vs Covid long hauler?, UPJ obstruction, chest pain, history of hypothyroid -Presenting with worsening fatigue and shortness of breath. Notably anemic in emergency room. Covid positive in October -Hemoglobin 5.4 in emergency room. Transfuse 2 units -Macrocytic on lab evaluation with B12 deficiency. B12 shot and B complex vitamins started -No alcohol use or vegetarian diet to contribute to B12 deficiency -CT scan in emergency room did show a UPJ obstruction. Urology consulted -No apparent bleeding from anywhere at this point -Regular diet -Continue Heparin -Will transition to oral blood thinner on discharge, likely Eliquis/Xarelto, although will be cautious given anemia History of Present Illness History of Present Illness Patient is 61-year-old female who presented to the emergency room today due to chest pain for 3 to 5 days and shortness of breath and weakness that has been going on for about a month. Patient reports that she had Covid in October and has had exertional shortness of breath ever since then. Frequently has to sit down to catch her breath when doing any activity. Patient also reports that since this she has noticed left lower extremity swelling. Works from home sits down most of the day and notices that her left leg in particular will be notably swollen by the end of the day. However reports with elevation the swelling improves. In ER duplex scan showed left lower extremity DVT. On presentation patient also notably anemic. Hemoglobin around 5.4. Patient denies any known bleeding anywhere. Work-up showed MCV 132 and a low B12. Patient has had decreased p.o. intake ever since her Covid episode. Denies any vegetarian diet. Says she frequently eats meat but has been eating much less ever since COVID as it just does not sound good to her. 11/23 Patient evaluated examined at bedside. She did well overnight no recurrence of chest pain no worsening lower extremity swelling. She also feeling much more energized after blood transfusions. Continue to monitor hemoglobin. Cardiology and neurology consulted. Low TSH will check T4. Plan discussed with bedside RN. Vitals/I&O Vitals/I&O: Vital Signs Date Time Temp Pulse Resp B/P (MAP) Pulse Ox O2 Delivery O2 Flow Rate FiO2 11/23/21 08:00 Room Air 11/23/21 07:00 98.1 64 17 118/50 (72) 99 98.1 I & O 11/22/21 11/22/21 11/23/21 15:00 23:00 07:00 Intake Total 1120 ml 500 ml Output Total 0 ml Balance 1120 ml 500 ml Physical Exam General: Alert, Oriented X3, Cooperative Heart: Regular rate, Normal S1, Normal S2 Lungs: Clear Abdomen: Normal bowel sounds, Soft, No tenderness Extremities: No edema, Normal pulses Skin: No significant lesion Labs Labs: Laboratory Tests Test 11/22/21 15:10 11/22/21 16:28 11/22/21 18:00 11/22/21 18:40 White Blood Count 4.8 x10^3/uL (4.0-11.0) Red Blood Count 1.12 x10^6/uL (3.50-5.40) Hemoglobin 5.4 g/dL (12.0-15.5) Hematocrit 14.8 % (36.0-47.0) Mean Corpuscular Volume 132 fL (79-100) Mean Corpuscular Hemoglobin 48 pg (25-35) Mean Corpuscular Hemoglobin Concent 37 g/dL (31-37) Red Cell Distribution Width 14.3 % (11.5-14.5) Platelet Count 247 x10^3/uL (140-400) Neutrophils (%) (Auto) 78 % (31-73) Lymphocytes (%) (Auto) 16 % (24-48) Monocytes (%) (Auto) 4 % (0-9) Eosinophils (%) (Auto) 2 % (0-3) Basophils (%) (Auto) 0 % (0-3) Neutrophils # (Auto) 3.8 x10^3/uL (1.8-7.7) Lymphocytes # (Auto) 0.8 x10^3/uL (1.0-4.8) Monocytes # (Auto) 0.2 x10^3/uL (0.0-1.1) Eosinophils # (Auto) 0.1 x10^3/uL (0.0-0.7) Basophils # (Auto) 0.0 x10^3/uL (0.0-0.2) Platelet Estimate Adequate (ADEQUATE) Basophilic Stippling Present Macrocytosis Marked Tear Drop Cells Occ Ovalocytes Few RBC Morphology Bizarre Forms Few Prothrombin Time 13.5 SEC (11.7-14.0) Prothromb Time International Ratio 1.0 (0.8-1.1) Activated Partial Thromboplast Time 26 SEC (24-38) Sodium Level 136 mmol/L (136-145) Potassium Level 3.6 mmol/L (3.5-5.1) Chloride Level 99 mmol/L (98-107) Carbon Dioxide Level 25 mmol/L (21-32) Anion Gap 12 (6-14) Blood Urea Nitrogen 22 mg/dL (7-20) Creatinine 0.8 mg/dL (0.6-1.0) Estimated GFR (Cockcroft-Gault) 72.9 BUN/Creatinine Ratio 28 (6-20) Glucose Level 95 mg/dL (70-99) Calcium Level 8.3 mg/dL (8.5-10.1) Iron Level 176 ug/dL (50-170) Total Iron Binding Capacity 287 ug/dL (250-450) Iron Saturation 61 % (15-34) Total Bilirubin 1.5 mg/dL (0.2-1.0) Aspartate Amino Transf (AST/SGOT) 25 U/L (15-37) Alanine Aminotransferase (ALT/SGPT) 21 U/L (14-59) Alkaline Phosphatase 60 U/L (46-116) Troponin I High Sensitivity 30 ng/L (4-50) 33 ng/L (4-50) YX-Zro-Z-Type Natriuretic Peptide 624 pg/mL (0-124) Total Protein 7.3 g/dL (6.4-8.2) Albumin 3.9 g/dL (3.4-5.0) Albumin/Globulin Ratio 1.1 (1.0-1.7) Vitamin B12 Level 101 pg/mL (247-911) Serum Folate 13.64 ng/ml (3.2-20.0) Thyroid Stimulating Hormone (TSH) 0.007 uIU/mL (0.358-3.74) Stool Occult Blood Negative (NEG) SARS-CoV-2 Antigen (Rapid) Negative (NEGATIVE) Test 11/22/21 21:20 11/23/21 08:25 Troponin I High Sensitivity 67 ng/L (4-50) 245 ng/L (4-50) White Blood Count 4.6 x10^3/uL (4.0-11.0) Red Blood Count 2.12 x10^6/uL (3.50-5.40) Hemoglobin 8.0 g/dL (12.0-15.5) Hematocrit 23.3 % (36.0-47.0) Mean Corpuscular Volume 110 fL (79-100) Mean Corpuscular Hemoglobin 38 pg (25-35) Mean Corpuscular Hemoglobin Concent 35 g/dL (31-37) Red Cell Distribution Width 33.3 % (11.5-14.5) Platelet Count 206 x10^3/uL (140-400) Heparin Anti-Xa Act, Unfractionated 0.12 IU/mL (0.30-0.70) Triglycerides Level 71 mg/dL (0-150) Cholesterol Level 99 mg/dL (0-200) LDL Cholesterol, Calculated 52 mg/dL (0-100) VLDL Cholesterol, Calculated 14 mg/dL (0-40) Non-HDL Cholesterol Calculated 66 mg/dL (0-129) HDL Cholesterol 33 mg/dL (40-60) Cholesterol/HDL Ratio 3.0 Assessment and Plan Assessmemt and Plan Problems Medical Problems: (1) DVT (deep venous thrombosis) Status: Acute (2) Hydronephrosis Status: Acute (3) Low hemoglobin Status: Acute (4) UPJ stricture, acquired Status: Acute Comment Review of Relevant I have reviewed the following items izzy (where applicable) has been applied. Medications: Current Medications Medications (Trade) Dose Ordered Sig/Marshal Route PRN Reason Start Time Stop Time Status Last Admin Dose Admin Sodium Chloride 1,000 ml @ 1,000 mls/hr Q1H IV 11/22/21 15:15 11/22/21 16:14 DC 11/22/21 15:32 Famotidine (Pepcid Vial) 20 mg 1X ONCE IVP 11/22/21 15:30 11/22/21 15:32 DC 11/22/21 15:49 Iohexol (Omnipaque 350 Mg/ml) 90 ml 1X ONCE IV 11/22/21 16:00 11/22/21 16:01 DC 11/22/21 16:03 Vitamin B Complex (Folbic Tablet) 1 tab DAILY PO 11/23/21 09:00 11/23/21 09:05 Heparin Sodium/ Dextrose 250 ml @ 10.816 mls/ hr CONT PRN IV PER PROTOCOL 11/22/21 19:15 11/23/21 01:38 Heparin Sodium (Porcine) (Heparin Sodium) 2,050 unit PRN Q6HRS PRN IV FOR UFH LEVEL LESS THAN 0.2 11/22/21 19:15 11/23/21 10:09 Justifications for Admission Other Justification ALBERTO LUNA MD Nov 23, 2021 11:36
--- NOTE | 2021-11-23 12:03 | NUR ---
SW following. Discussed with RN, pt from home with son, room air, cardiac diet, ad priti, rapid COVID-19 negative. Urology and Cardiology following. RN advised no SW needs at this time. SW will continue to follow.
--- NOTE | 2021-11-23 12:14 | PDOC2 ---
UROLOGY CONSULT DOS: DATE: 11/23/21 TIME: 12:07 Reason for Consult: R UPJ obstruction 61F admitted to the hospital for chest pain and anemia. Patient had a CT of her chest abdomen and pelvis. She was found to have a moderate right-sided hydronephrosis with abrupt transition point and dilated ureter at the right UPJ --therefore urology was consulted. Creatinine is stable at 0.8. She does not have any flank pain. She has not known about this finding in the past. Previous history includes kidney stones that have passed spontaneously. She denies any urinary bother at this time. Denies any baseline frequency, recurrent UTIs, leakage, gross hematuria or flank pain. She has never had any surgical intervention on system. She has never seen urology in the past. ROS Constitutional: Denies fevers, chills, weakness Cardiovascular: Denies chest pain, palpitations Respiratory: Denies shortness of breath, wheezing, dyspnea on exertion GI: Denies abdominal pain, nausea, vomiting : Denies dysuria, frequency, urgency, hematuria, urinary retention, flank pain Skin: Denies rash, bruising Musculoskeletal: Denies extremity pain, extremity edema Psychiatric: Denies stress, anxiety Past Surgical History: No pertinent history Current Medications Current Medications Sodium Chloride 1,000 ml @ 1,000 mls/hr Q1H IV Last administered on 11/22/21at 15:32; Start 11/22/21 at 15:15; Stop 11/22/21 at 16:14; Status DC Aspirin (Dario Aspirin) 325 mg 1X ONCE PO ; Start 11/22/21 at 15:30; Stop 11/22/21 at 15:51; Status DC Famotidine (Pepcid Vial) 20 mg 1X ONCE IVP Last administered on 11/22/21at 15:49; Start 11/22/21 at 15:30; Stop 11/22/21 at 15:32; Status DC Iohexol (Omnipaque 350 Mg/ml) 90 ml 1X ONCE IV Last administered on 11/22/21at 16:03; Start 11/22/21 at 16:00; Stop 11/22/21 at 16:01; Status DC Info (CONTRAST GIVEN -- Rx MONITORING) 1 each PRN DAILY PRN MC SEE COMMENTS; Start 11/22/21 at 16:00; Stop 11/24/21 at 15:59 Ondansetron HCl (Zofran) 4 mg PRN Q8HRS PRN IVP NAUSEA/VOMITING; Start 11/22/21 at 17:15; Stop 11/23/21 at 17:14 Acetaminophen (Tylenol) 650 mg PRN Q4HRS PRN PO FEVER > 100.3'F; Start 11/22/21 at 17:15; Stop 11/23/21 at 17:14 Cyanocobalamin (Vitamin B-12 Inj) 1,000 mcg 1X ONCE IM ; Start 11/22/21 at 19:00; Stop 11/22/21 at 19:01; Status DC Vitamin B Complex (Folbic Tablet) 1 tab DAILY PO Last administered on 11/23/21at 09:05; Start 11/23/21 at 09:00 Heparin Sodium/ Dextrose 250 ml @ 10.816 mls/ hr CONT PRN IV PER PROTOCOL Last administered on 11/23/21at 01:38; Start 11/22/21 at 19:15 Heparin Sodium (Porcine) (Heparin Sodium) 2,050 unit PRN Q6HRS PRN IV FOR UFH LEVEL LESS THAN 0.2 Last administered on 11/23/21at 10:09; Start 11/22/21 at 19:15 Heparin Sodium (Porcine) (Heparin Sodium) 1,000 unit PRN Q6HRS PRN IV FOR UFH LEVEL 0.2 - 0.29; Start 11/22/21 at 19:15 Ondansetron HCl (Zofran) 4 mg PRN Q6HRS PRN IVP NAUSEA/VOMITING; Start 11/22/21 at 19:30 Calcium Carbonate/ Glycine (Tums) 500 mg PRN Q3HRS PRN PO UPSET STOMACH; Start 11/22/21 at 19:30 Zolpidem Tartrate (Ambien) 5 mg PRN QHS PRN PO INSOMNIA, MAY REPEAT IN 1HR; Start 11/22/21 at 19:30 Info (Non-Icu Electrolyte Protocol) 1 ea PRN DAILY PRN MC SEE COMMENTS; Start 11/22/21 at 19:30 Oxycodone/ Acetaminophen (Percocet 5/325) 1 tab PRN Q4HRS PRN PO MILD PAIN, 1ST CHOICE; Start 11/22/21 at 19:30 Oxycodone/ Acetaminophen (Percocet 5/325) 2 tab PRN Q4HRS PRN PO MODERATE PAIN, SEVERE PAIN; Start 11/22/21 at 19:30 Acetaminophen (Tylenol) 650 mg PRN Q6HRS PRN PO Headaches, Temp > 101.5F; Start 11/22/21 at 19:30 Senna/Docusate Sodium (Senna Plus) 1 tab BID PO ; Start 11/22/21 at 21:00 Levothyroxine Sodium (Synthroid) 125 mcg DAILY07 PO ; Start 11/24/21 at 07:00 Lisinopril (Prinivil) 10 mg DAILY PO ; Start 11/23/21 at 11:00 Active Scripts Active Reported Levothyroxine Sodium 125 Mcg Tablet 1 Tab PO DAILY Lisinopril 10 Mg Tablet 1 Tab PO DAILY Allergies: Coded Allergies: No Known Drug Allergies (Unverified , 11/22/21) Physical Examination GENERAL: awake, alert, oriented SKIN: warm, dry RESPIRATORY: Aerating well, symmetrical expansion GI: Soft, nontender, no guarding, no rebound : Normal anatomy, no lesions, no CVA tenderness MUSCULOSKELETAL: Moves all extremities, no edema NEURO: No gross abnormalities PSYCHIATRIC: Normal mood, normal affect, pleasant VITALS Vital Signs Date Time Temp Pulse Resp B/P (MAP) Pulse Ox O2 Delivery O2 Flow Rate FiO2 11/23/21 08:00 Room Air 11/23/21 07:00 98.1 64 17 118/50 (72) 99 98.1 Labs Laboratory Tests Test 11/22/21 15:10 11/22/21 16:28 11/22/21 18:00 11/22/21 18:40 White Blood Count 4.8 x10^3/uL (4.0-11.0) Red Blood Count 1.12 x10^6/uL (3.50-5.40) Hemoglobin 5.4 g/dL (12.0-15.5) Hematocrit 14.8 % (36.0-47.0) Mean Corpuscular Volume 132 fL (79-100) Mean Corpuscular Hemoglobin 48 pg (25-35) Mean Corpuscular Hemoglobin Concent 37 g/dL (31-37) Red Cell Distribution Width 14.3 % (11.5-14.5) Platelet Count 247 x10^3/uL (140-400) Neutrophils (%) (Auto) 78 % (31-73) Lymphocytes (%) (Auto) 16 % (24-48) Monocytes (%) (Auto) 4 % (0-9) Eosinophils (%) (Auto) 2 % (0-3) Basophils (%) (Auto) 0 % (0-3) Neutrophils # (Auto) 3.8 x10^3/uL (1.8-7.7) Lymphocytes # (Auto) 0.8 x10^3/uL (1.0-4.8) Monocytes # (Auto) 0.2 x10^3/uL (0.0-1.1) Eosinophils # (Auto) 0.1 x10^3/uL (0.0-0.7) Basophils # (Auto) 0.0 x10^3/uL (0.0-0.2) Platelet Estimate Adequate (ADEQUATE) Basophilic Stippling Present Macrocytosis Marked Tear Drop Cells Occ Ovalocytes Few RBC Morphology Bizarre Forms Few Prothrombin Time 13.5 SEC (11.7-14.0) Prothromb Time International Ratio 1.0 (0.8-1.1) Activated Partial Thromboplast Time 26 SEC (24-38) Sodium Level 136 mmol/L (136-145) Potassium Level 3.6 mmol/L (3.5-5.1) Chloride Level 99 mmol/L (98-107) Carbon Dioxide Level 25 mmol/L (21-32) Anion Gap 12 (6-14) Blood Urea Nitrogen 22 mg/dL (7-20) Creatinine 0.8 mg/dL (0.6-1.0) Estimated GFR (Cockcroft-Gault) 72.9 BUN/Creatinine Ratio 28 (6-20) Glucose Level 95 mg/dL (70-99) Calcium Level 8.3 mg/dL (8.5-10.1) Iron Level 176 ug/dL (50-170) Total Iron Binding Capacity 287 ug/dL (250-450) Iron Saturation 61 % (15-34) Total Bilirubin 1.5 mg/dL (0.2-1.0) Aspartate Amino Transf (AST/SGOT) 25 U/L (15-37) Alanine Aminotransferase (ALT/SGPT) 21 U/L (14-59) Alkaline Phosphatase 60 U/L (46-116) Troponin I High Sensitivity 30 ng/L (4-50) 33 ng/L (4-50) JJ-Wxx-I-Type Natriuretic Peptide 624 pg/mL (0-124) Total Protein 7.3 g/dL (6.4-8.2) Albumin 3.9 g/dL (3.4-5.0) Albumin/Globulin Ratio 1.1 (1.0-1.7) Vitamin B12 Level 101 pg/mL (247-911) Serum Folate 13.64 ng/ml (3.2-20.0) Thyroid Stimulating Hormone (TSH) 0.007 uIU/mL (0.358-3.74) Stool Occult Blood Negative (NEG) SARS-CoV-2 Antigen (Rapid) Negative (NEGATIVE) Test 11/22/21 21:20 11/23/21 08:25 Troponin I High Sensitivity 67 ng/L (4-50) 245 ng/L (4-50) White Blood Count 4.6 x10^3/uL (4.0-11.0) Red Blood Count 2.12 x10^6/uL (3.50-5.40) Hemoglobin 8.0 g/dL (12.0-15.5) Hematocrit 23.3 % (36.0-47.0) Mean Corpuscular Volume 110 fL (79-100) Mean Corpuscular Hemoglobin 38 pg (25-35) Mean Corpuscular Hemoglobin Concent 35 g/dL (31-37) Red Cell Distribution Width 33.3 % (11.5-14.5) Platelet Count 206 x10^3/uL (140-400) Heparin Anti-Xa Act, Unfractionated 0.12 IU/mL (0.30-0.70) Triglycerides Level 71 mg/dL (0-150) Cholesterol Level 99 mg/dL (0-200) LDL Cholesterol, Calculated 52 mg/dL (0-100) VLDL Cholesterol, Calculated 14 mg/dL (0-40) Non-HDL Cholesterol Calculated 66 mg/dL (0-129) HDL Cholesterol 33 mg/dL (40-60) Cholesterol/HDL Ratio 3.0 Laboratory Tests Test 11/22/21 15:10 11/22/21 16:28 11/22/21 18:00 11/22/21 18:40 White Blood Count 4.8 x10^3/uL (4.0-11.0) Red Blood Count 1.12 x10^6/uL (3.50-5.40) Hemoglobin 5.4 g/dL (12.0-15.5) Hematocrit 14.8 % (36.0-47.0) Mean Corpuscular Volume 132 fL (79-100) Mean Corpuscular Hemoglobin 48 pg (25-35) Mean Corpuscular Hemoglobin Concent 37 g/dL (31-37) Red Cell Distribution Width 14.3 % (11.5-14.5) Platelet Count 247 x10^3/uL (140-400) Neutrophils (%) (Auto) 78 % (31-73) Lymphocytes (%) (Auto) 16 % (24-48) Monocytes (%) (Auto) 4 % (0-9) Eosinophils (%) (Auto) 2 % (0-3) Basophils (%) (Auto) 0 % (0-3) Neutrophils # (Auto) 3.8 x10^3/uL (1.8-7.7) Lymphocytes # (Auto) 0.8 x10^3/uL (1.0-4.8) Monocytes # (Auto) 0.2 x10^3/uL (0.0-1.1) Eosinophils # (Auto) 0.1 x10^3/uL (0.0-0.7) Basophils # (Auto) 0.0 x10^3/uL (0.0-0.2) Platelet Estimate Adequate (ADEQUATE) Basophilic Stippling Present Macrocytosis Marked Tear Drop Cells Occ Ovalocytes Few RBC Morphology Bizarre Forms Few Prothrombin Time 13.5 SEC (11.7-14.0) Prothromb Time International Ratio 1.0 (0.8-1.1) Activated Partial Thromboplast Time 26 SEC (24-38) Sodium Level 136 mmol/L (136-145) Potassium Level 3.6 mmol/L (3.5-5.1) Chloride Level 99 mmol/L (98-107) Carbon Dioxide Level 25 mmol/L (21-32) Anion Gap 12 (6-14) Blood Urea Nitrogen 22 mg/dL (7-20) Creatinine 0.8 mg/dL (0.6-1.0) Estimated GFR (Cockcroft-Gault) 72.9 BUN/Creatinine Ratio 28 (6-20) Glucose Level 95 mg/dL (70-99) Calcium Level 8.3 mg/dL (8.5-10.1) Iron Level 176 ug/dL (50-170) Total Iron Binding Capacity 287 ug/dL (250-450) Iron Saturation 61 % (15-34) Total Bilirubin 1.5 mg/dL (0.2-1.0) Aspartate Amino Transf (AST/SGOT) 25 U/L (15-37) Alanine Aminotransferase (ALT/SGPT) 21 U/L (14-59) Alkaline Phosphatase 60 U/L (46-116) Troponin I High Sensitivity 30 ng/L (4-50) 33 ng/L (4-50) GE-Ady-L-Type Natriuretic Peptide 624 pg/mL (0-124) Total Protein 7.3 g/dL (6.4-8.2) Albumin 3.9 g/dL (3.4-5.0) Albumin/Globulin Ratio 1.1 (1.0-1.7) Vitamin B12 Level 101 pg/mL (247-911) Serum Folate 13.64 ng/ml (3.2-20.0) Thyroid Stimulating Hormone (TSH) 0.007 uIU/mL (0.358-3.74) Stool Occult Blood Negative (NEG) SARS-CoV-2 Antigen (Rapid) Negative (NEGATIVE) Test 11/22/21 21:20 11/23/21 08:25 Troponin I High Sensitivity 67 ng/L (4-50) 245 ng/L (4-50) White Blood Count 4.6 x10^3/uL (4.0-11.0) Red Blood Count 2.12 x10^6/uL (3.50-5.40) Hemoglobin 8.0 g/dL (12.0-15.5) Hematocrit 23.3 % (36.0-47.0) Mean Corpuscular Volume 110 fL (79-100) Mean Corpuscular Hemoglobin 38 pg (25-35) Mean Corpuscular Hemoglobin Concent 35 g/dL (31-37) Red Cell Distribution Width 33.3 % (11.5-14.5) Platelet Count 206 x10^3/uL (140-400) Heparin Anti-Xa Act, Unfractionated 0.12 IU/mL (0.30-0.70) Triglycerides Level 71 mg/dL (0-150) Cholesterol Level 99 mg/dL (0-200) LDL Cholesterol, Calculated 52 mg/dL (0-100) VLDL Cholesterol, Calculated 14 mg/dL (0-40) Non-HDL Cholesterol Calculated 66 mg/dL (0-129) HDL Cholesterol 33 mg/dL (40-60) Cholesterol/HDL Ratio 3.0 Assessment/Plan --Right-sided UPJ obstruction Reviewed CT imaging. Appears to have moderate right-sided hydronephrosis with an abrupt transition and dilated ureter at the right UPJ. Her creatinine is stable at 0.8. She does not have any flank pain or urinary bother at this time. This is felt to be chronic in nature as she is asymptomatic at this time. There is no emergent intervention needed at this time during this hospitalization. Patient to follow-up within the next month with Dr. Rene for management options including pyeloplasty, observation, or ureteral stent placement. Again this is not bothersome for the patient at this time and likely to be a chronic anatomical variant for this patient. Discussed with Dr. Rene Please call with other urology concerns. QUINTEN ORTIZ Nov 23, 2021 12:14
[2021-11-23] MEDS: LISINOPRIL 10 MG TABLET PO SCH (12:24)
[2021-11-23 15:00] VITALS: BP 120/47
[2021-11-23 19:00] VITALS: BP 140/60
[2021-11-23 23:15] VITALS: BP 123/59
[2021-11-24 03:45] VITALS: BP 114/44
[2021-11-24 06:31] LABS: HEMATOCRIT 21.2 % (36.0-47.0); HEMOGLOBIN 7.4 g/dL (12.0-15.5); RED BLOOD COUNT 1.93 x10^6/uL (3.50-5.40); RED CELL DISTRIBUTION WIDTH 32.9 % (11.5-14.5); WHITE BLOOD COUNT 4.6 x10^3/uL (4.0-11.0)
[2021-11-24 07:00] VITALS: BP 131/46
[2021-11-24] MEDS ORDERED: LEVOTHYROXINE 125 MCG TABLET PO SCH (07:00)
[2021-11-24] MEDS: SENNOSIDES/DOCUSATE 8.6/50MG TABLET. PO SCH (09:00)
[2021-11-24] MEDS ORDERED: APIXABAN 5 MG TABLET. PO SCH (10:00)
[2021-11-24] MEDS ORDERED: CYANOCOBALAMIN (VITAMIN B-12) 1,000 MCG/ML VIAL. IM ONE (10:00)
[2021-11-24] MEDS ORDERED: APIX5TAB PO (10:01)
[2021-11-24] MEDS: VITAMIN B12,B9,B6 COMPLEX 1 TABLET. PO SCH (10:01)
[2021-11-24] MEDS: LISINOPRIL 10 MG TABLET PO SCH (10:02)
--- NOTE | 2021-11-24 10:24 | PDOC3 ---
[facility]-Discharge Summary Date of Admission: Date of Admission: Nov 22, 2021 Date of Discharge: Date of Discharge: Nov 24, 2021 Admission Diagnosis: Problems: (1) DVT (deep venous thrombosis) (2) Low hemoglobin Consults: Consults: Cards Hospital Course: Hospital Course: Chief Complaint Fatigue shortness of breath secondary to macrocytic anemia vs Covid long hauler?, UPJ obstruction, chest pain, history of hypothyroid -Presenting with worsening fatigue and shortness of breath. Notably anemic in emergency room. Covid positive in October -Hemoglobin 5.4 in emergency room. Transfuse 2 units -Macrocytic on lab evaluation with B12 deficiency. B12 shot and B complex vitamins started -No alcohol use or vegetarian diet to contribute to B12 deficiency -CT scan in emergency room did show a UPJ obstruction. Urology consulted -No apparent bleeding from anywhere at this point -Regular diet -Continue Heparin -Will transition to oral blood thinner on discharge, likely Eliquis/Xarelto, although will be cautious given anemia History of Present Illness History of Present Illness Patient is 61-year-old female who presented to the emergency room today due to chest pain for 3 to 5 days and shortness of breath and weakness that has been going on for about a month. Patient reports that she had Covid in October and has had exertional shortness of breath ever since then. Frequently has to sit down to catch her breath when doing any activity. Patient also reports that since this she has noticed left lower extremity swelling. Works from home sits down most of the day and notices that her left leg in particular will be notably swollen by the end of the day. However reports with elevation the swelling improves. In ER duplex scan showed left lower extremity DVT. On presentation patient also notably anemic. Hemoglobin around 5.4. Patient denies any known bleeding anywhere. Work-up showed MCV 132 and a low B12. Patient has had decreased p.o. intake ever since her Covid episode. Denies any vegetarian diet. Says she frequently eats meat but has been eating much less ever since COVID as it just does not sound good to her. 11/23 Patient evaluated examined at bedside. She did well overnight no recurrence of chest pain no worsening lower extremity swelling. She also feeling much more energized after blood transfusions. Continue to monitor hemoglobin. Cardiology and neurology consulted. Low TSH will check T4. Plan discussed with bedside RN. 11/24 Evaluate examined at bedside. Hemoglobin mildly dropped but no need for transfusion. Switch heparin to Eliquis today with loading dose. Advised patient to get labs checked in the next couple of days she is agreeable to this and will follow up with her PCP. Greater than 30 minutes spent on discharge. Disposition: Disposition/Orders: D/C to Home Activity: Activity: Resume previous activity Diet: Diet: Regular Medications: Home Meds Active Scripts Apixaban (ELIQUIS) 5 Mg Tablet, 5 MG PO BID for dvt for 90 Days, #180 TAB Do not start this dosage until 12/01 Prov:ALBERTO LUNA MD 11/24/21 Apixaban (ELIQUIS) 5 Mg Tablet, 10 MG PO BID for dvt for 7 Days, #28 TAB Prov:ALBERTO LUNA MD 11/24/21 Reported Medications Levothyroxine Sodium (LEVOTHYROXINE SODIUM) 125 Mcg Tablet, 1 TAB PO DAILY for thyroid, #30 TAB 5 Refills 11/22/21 Lisinopril (LISINOPRIL) 10 Mg Tablet, 1 TAB PO DAILY for HTN, #30 TAB 5 Refills 11/22/21 Scheduled Apixaban (Eliquis), 10 MG PO BID Apixaban (Eliquis), 5 MG PO BID Levothyroxine Sodium (Levothyroxine Sodium), 1 TAB PO DAILY, (Reported) Lisinopril (Lisinopril), 1 TAB PO DAILY, (Reported) Justicifation of Admission Dx: Justifications for Admission: Justification of Admission Dx: Yes (anemia, dvt) ALBERTO LUNA MD Nov 24, 2021 10:24
--- NOTE | 2021-11-24 10:35 | NUR ---
SW following. Discussed with RN, pt from home with son, room air. Discharge order for home with self care. RN advised no SW needs.
[2021-11-24 11:00] VITALS: BP 121/49
[2021-11-24 12:48] LABS: HEMATOCRIT 21.1 % (36.0-47.0); HEMOGLOBIN 7.3 g/dL (12.0-15.5); RED BLOOD COUNT 1.92 x10^6/uL (3.50-5.40); RED CELL DISTRIBUTION WIDTH 32.8 % (11.5-14.5); WHITE BLOOD COUNT 4.8 x10^3/uL (4.0-11.0)
--- NOTE | 2021-11-24 13:31 | CARD ---
MR#: [id number] Date of Study: 11/24/2021 Ordering Physician: SALVADOR GREENWOOD, Referring Physician: SALVADOR GREENWOOD, Tech: Janki Maher [facility] APPROVED REPORT EXAM: Two-dimensional and M-mode echocardiogram with Doppler and color Doppler. Other Information Quality : AverageHR: 85bpm Rhythm : NSR INDICATION Chest Pain RISK FACTORS Hypertension 2D DIMENSIONS RVDd3.3 (2.9-3.5cm)Left Atrium(2D)3.5 (1.6-4.0cm) IVSd1.0 (0.7-1.1cm)Aortic Root(2D)3.2 (2.0-3.7cm) LVDd4.3 (3.9-5.9cm)LVOT Diameter2.2 (1.8-2.4cm) PWd1.0 (0.7-1.1cm)LVDs3.2 (2.5-4.0cm) FS (%) 27.0 %SV44.3 ml LVEF(%)52.9 (>50%) Aortic Valve AoV Peak Ganesh.135.8cm/sAoV VTI30.9cm AO Peak GR.7.4mmHgLVOT Peak Ganesh.94.8cm/s AO Mean GR.4mmHgAVA (VMAX)2.54cm2 Mitral Valve MV E Yrztglda591.0cm/sMV DECEL [id number] MV A Xkgmjoxr25.4cm/sE/A Ratio1.1 Pulmonary Valve PV Peak Bcfuddew89.2cm/s Tricuspid Valve TR P. Lojtxpvb574ob/sTR Peak Gr.28mmHg LEFT VENTRICLE The left ventricle is normal size. There is normal left ventricular wall thickness. The left ventricu lar systolic function is normal. Estimated ejection fraction 55-60%. There is normal LV segmental wal l motion. The left ventricular diastolic function and filling is normal for age. RIGHT VENTRICLE The right ventricle is normal size. There is normal right ventricular wall thickness. The right ventr icular systolic function is normal. ATRIA The left atrium size is normal. The right atrium size is normal. The interatrial septum is intact wit h no evidence for an atrial septal defect or patent foramen ovale as noted on 2-D or Doppler imaging. AORTIC VALVE The aortic valve is normal in structure and function. Doppler and Color Flow revealed no significant aortic regurgitation. There is no significant aortic valvular stenosis. MITRAL VALVE The mitral valve is normal in structure and function. There is no evidence of mitral valve prolapse. There is no mitral valve stenosis. Doppler and Color-flow revealed trace to mild mitral regurgitation . TRICUSPID VALVE The tricuspid valve is normal in structure and function. Doppler and Color Flow revealed trace tricus pid regurgitation. Estimated PAP 32 mmHg. There is no tricuspid valve stenosis. PULMONIC VALVE The pulmonary valve is normal in structure and function. Doppler and Color Flow revealed no pulmonic valvular regurgitation. GREAT VESSELS The aortic root is normal in size. The ascending aorta is normal in size. The IVC is normal in size a nd collapses >50% with inspiration. PERICARDIAL EFFUSION There is no evidence of significant pericardial effusion. Critical Notification Critical Value: No <Conclusion> The left ventricular systolic function is normal. Estimated ejection fraction 55-60%. There is normal LV segmental wall motion. Trace to mild mitral regurgitation. Trace tricuspid regurgitation. Estimated PAP 32 mmHg. There is no evidence of significant pericardial effusion. Signed by : Enmanuel Raya, Electronically Approved : 11/24/2021 13:31:14
--- NOTE | 2021-11-24 13:58 | PDOC ---
PROGRESS NOTES Date of Service: DATE: 11/24/21 TIME: 13:57 Subjective Subjective No more CP Objective Objective Vital Signs Date Time Temp Pulse Resp B/P (MAP) Pulse Ox O2 Delivery O2 Flow Rate FiO2 11/24/21 11:00 98.4 71 18 121/49 (73) 98 98.4 11/24/21 08:00 Room Air Intake and Output 11/24/21 07:00 Intake Total 1320 ml Balance 1320 ml Intake Oral 1320 ml # Voids 5 # Bowel Movements 1 Physical Exam Abdomen: Soft, No tenderness Heart: Regular rate Extremities: No edema, Normal pulses General: Alert, Oriented X3, Cooperative, No acute distress HEENT: Atraumatic, Mucous membr. moist/pink Lungs: Clear to auscultation MUSCULOSKELETAL: Osteoarthritic changes both hands Neuro: Normal speech, Sensation intact Psych/Mental Status: Mental status NL, Mood NL Skin: No significant lesion Assessment Assessment Patient seen and examined. 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 Labs Laboratory Tests Test 11/23/21 16:40 11/23/21 23:30 11/24/21 05:30 11/24/21 12:15 Heparin Anti-Xa Act, Unfractionated 0.27 IU/mL (0.30-0.70) 0.33 IU/mL (0.30-0.70) 0.30 IU/mL (0.30-0.70) White Blood Count 4.6 x10^3/uL (4.0-11.0) 4.8 x10^3/uL (4.0-11.0) Red Blood Count 1.93 x10^6/uL (3.50-5.40) 1.92 x10^6/uL (3.50-5.40) Hemoglobin 7.4 g/dL (12.0-15.5) 7.3 g/dL (12.0-15.5) Hematocrit 21.2 % (36.0-47.0) 21.1 % (36.0-47.0) Mean Corpuscular Volume 110 fL (79-100) 110 fL (79-100) Mean Corpuscular Hemoglobin 39 pg (25-35) 38 pg (25-35) Mean Corpuscular Hemoglobin Concent 35 g/dL (31-37) 34 g/dL (31-37) Red Cell Distribution Width 32.9 % (11.5-14.5) 32.8 % (11.5-14.5) Platelet Count 189 x10^3/uL (140-400) 207 x10^3/uL (140-400) Medications Current Medications Apixaban (Eliquis) 5 mg BID PO ; Start 12/01/21 at 09:00 Apixaban (Eliquis) 10 mg BID PO Last administered on 11/24/21at 10:01; Start 11/24/21 at 10:00; Stop 11/30/21 at 21:01 Cyanocobalamin (Vitamin B-12 Inj) 1,000 mcg 1X ONCE IM Last administered on 11/24/21at 10:01; Start 11/24/21 at 10:00; Stop 11/24/21 at 10:01; Status DC Levothyroxine Sodium (Synthroid) 125 mcg DAILY07 PO Last administered on 11/24/21at 06:11; Start 11/24/21 at 07:00 Vitals/I & O Vital Sign - Last 24 Hours 11/23/21 11/23/21 11/23/21 11/23/21 15:00 19:00 21:30 23:15 Temp 98.8 98.0 98.4 98.8 98.0 98.4 Pulse 79 73 71 Resp 18 20 20 B/P (MAP) 120/47 (71) 140/60 (86) 123/59 (80) Pulse Ox 97 99 98 O2 Delivery Room Air Room Air Room Air Room Air 11/24/21 11/24/21 11/24/21 11/24/21 03:45 07:00 08:00 10:02 Temp 98.7 98.1 98.7 98.1 Pulse 74 79 79 Resp 20 18 B/P (MAP) 114/44 (67) 131/46 (74) 131/46 Pulse Ox 96 100 O2 Delivery Room Air Room Air 11/24/21 11:00 Temp 98.4 98.4 Pulse 71 Resp 18 B/P (MAP) 121/49 (73) Pulse Ox 98 Intake and Output 11/23/21 11/23/21 11/24/21 15:00 23:00 07:00 Intake Total 480 ml 240 ml 600 ml Balance 480 ml 240 ml 600 ml BINU URRUTIA MD Nov 24, 2021 13:57
[2021-11-24 15:00] VITALS: BP 136/47
--- NOTE | 2021-11-24 16:14 | NUR ---
Discharge Note: PT DISCHARGED HOME WITH SELF CARE. PT LEFT FACILITY VIA PRIVATE VEHICLE WITH DAUGHTER AT [id number]. PT STABLE AND ALERT UPON DISCHARGE. PT PIV REMOVED FROM R AC WITHOUT COMPLICATIONS, BANDAGE APPLIED. PT EDUCATED ABOUT DISCHARGE INSTRUCTIONS, DISCHARGE MEDICATIONS, AND FOLLOW-UP CARE INSTRUCTIONS, NO CONCERNS VOICED AT THIS TIME. PT LEFT WITH ALL PERSONAL BELONGINGS. DIMITRI YEN Discharge instructions and discharge home medications reviewed with Patient and a copy given. All questions have been answered and understanding verbalized.
[2021-12-01] MEDS ORDERED: APIXABAN 5 MG TABLET. PO SCH (09:00)
== END 2021-11-24 15:39 | disposition home or self-care (01) | DRG 812 ==
LOC: ER 14:11 → 5 NORTH 17:04
PROVIDERS: ADMIT Student in an Organized Health Care Education/Training Program; ATTEND Student in an Organized Health Care Education/Training Program
PROC: 30233N1 Transfusion of Nonautologous Red Blood Cells into Peripheral Vein, Percutaneous Approach (ICD-10-PCS; principal; 2021-11-22)
DX: D53.9 Nutritional anemia, unspecified (principal); I82.433 Acute embolism and thrombosis of popliteal vein, bilateral; N13.1 Hydronephrosis with ureteral stricture, not elsewhere classified; Q62.11 Congenital occlusion of ureteropelvic junction; K21.9 Gastro-esophageal reflux disease without esophagitis; E03.9 Hypothyroidism, unspecified; E53.8 Deficiency of other specified B group vitamins; I10 Essential (primary) hypertension; Z82.49 Family history of ischemic heart disease and other diseases of the circulatory system; Z83.3 Family history of diabetes mellitus; Z87.442 Personal history of urinary calculi; Z20.822 Contact with and (suspected) exposure to COVID-19; U09.9 Post COVID-19 condition, unspecified
CPT/HCPCS: 36415; 36430; 71045; 71275; 74177; 80053; 80061; 82274; 82607; 82746; 83540; 83550; 83880; 84439; 84443; 84484; 85025; 85027; 85520; 85610; 85730; 86850; 86900; 86901; 86920; 87426; 93005; 93306; 93971; 96361; 96374; J1644; J3420; J3490; J7030; P9016; Q9967; U0003; 99285-25; C8929; G0378

== ENCOUNTER → 2021-12-20 | Outpatient (CLI) | payer OTHER ==
[2021-11-24 15:00] VITALS: BP 136/47
[~2021-12-20] MED LIST: APIX5TAB PO; LEVO125T5 PO; LISI10TA16 PO; REGADENOSON 0.4 MG/5 ML DISP.SYRIN. IV ONE
--- NOTE | 2021-12-22 10:39 | RAD ---
MR#: [id number] Date of Study: 12/20/2021 Ordering Physician: BINU URRUTIA, Referring Physician: MIKEY BERGER Tech: SHABNAM Ybarra ARRT (R) (N) APPROVED REPORT Test Type: Pharmacological Stress Nurse/Tech: Camille THOMAS Test Indications: Elevated troponin Cardiac History: HTN, Anticoagulants, anemia Medications: See EMR Medical History: See EMR Resting ECG: SR Resting Heart Rate: 60 bpm Resting Blood Pressure: 120/48mmHg Pretest Chest Pain: None Nurse/Tech Notes Lungs CTA, Normal S1S2 heart tones. No chest pain or SOA baseline. Pharm. Details Pharmacologic stress testing was performed using 0.4mg per 5ml of regadenoson given intravenously ove r 7-10 seconds. Stress Symptoms Flushing. No chest pain, no SOA. Headache resolved by end of test. POST EXERCISE Reason for Termination: Infusion complete Max HR: 110 bpm Max Blood Pressure: 116/44mmHg Blood Pressure response to exercise: Normal blood pressure response during stress. Heart Rate response to exercise: Normal response. Chest Pain: No. Arrhythmia: No. ST Change: No. INTERPRETATION Stress EKG Conclusion: The resting EKG shows a sinus rhythm with mild nonspecific ST segment changes. The stress EKG showed no significant changes from baseline. No EKG evidence of stress-induced ischemia. Imaging Protocol IMAGE PROTOCOL: Rest Tc-99m/stress Tc-99m 1 day Rest: Stress: Viability: Radiopharm.Tc99m [id number] Sestamibi Dose10.4mCi 30.7mCi Img Date 12/20/2021 12/20/2021 Inj-Img [id number]. 60min. Rest Admin Site:IV - Right AntecubitalAdministrator:SHABNAM Ybarra, ARRT (R)(N) Stress Admin Site: IV - Right AntecubitalAdministrator: Flakita Mike RT (R)(N) STRESS DATA End Diast. Vol.54.0mlAv. Heart Rate71.0bpm End Syst. Vol.6.0mlCO Index BSA3.4L/min Myocardial Aiff395.0gEject. Xjhevonh80.0% Stress Rates Pk. Fill Rate2.34EDV/secLVtime Pk. Fill 222.80msec Pk. Empty Rate3.33ESV/secLVtime Pk. Fllmi829.35msec 1/3 Pk. Fill1.21EDV/sec Stress Scores Regional WT0.00Summed WT0.00 Regional WM0.00Summed WM0.00 LV Perfusion The stress scans showed no significant defects. The rest scans showed no significant defects. Nuclear imaging shows no reversible ischemia or infarct. Wall Motion Left ventricular systolic function is intact with an ejection fraction of 75%. LV Perf. Quant 17 Seg. SSS0.00 17 Seg. SRS0.00 17 Seg. SDS0.00 Stress Defect Extent (% LAD)0.00Rest Defect Extent (% LAD)0.00Rev. Defect Extent (% LAD)0.00 Stress Defect Extent (% LCX) 0.00Rest Defect Extent (% LCX)0.00Rev. Defect Extent (% LCX)0.00 Stress Defect Extent (% RCA)0.00Rest Defect Extent (% RCA)0.00Rev. Defect Extent (% RCA)0.00 Stress Defect Extent (% CHAVA)0.00Rest Defect Extent (% CHAVA)0.00Rev. Defect Extent (% CHAVA)0.00 Conclusion 1. No EKG evidence of stress-induced ischemia. 2. Nuclear imaging shows no reversible ischemia or infarct. 3. Normal left ventricular systolic function with ejection fraction of 75%. 4. Moderately low to low risk Lexiscan nuclear stress test. Signed by : Rian Hein MD Electronically Approved : 12/22/2021 10:38:21
== END ==
LOC: NM 08:37
PROVIDERS: ATTEND Internal Medicine Cardiovascular Disease
DX: R77.8 Other specified abnormalities of plasma proteins (principal)
CPT/HCPCS: 78452; 93017; A9500; J2785

== ENCOUNTER → 2022-01-21 | Outpatient (CLI) | payer OTHER ==
[~2022-01-21] MED LIST changes: -REGADENOSON 0.4 MG/5 ML DISP.SYRIN. IV ONE
--- NOTE | 2022-01-21 10:23 | KCIC ---
INDICATION: 61 years of age asymptomatic female patient presents for screening mammography. No person al or family history of breast cancer TECHNIQUE: Full field craniocaudal and mediolateral oblique images of both breasts were obtained usi ng digital technique with tomosynthesis and also analyzed with computer-aided detection software. COMPARISON: Prior mammographic imaging dating back to 12/15/2015. BREAST COMPOSITION: Category B: There are scattered fibroglandular densities. FINDINGS: No suspicious masses, microcalcifications or architectural distortion is present to suggest malignanc y in either breast. The visualized axillae are unremarkable. IMPRESSION: No mammographic evidence of malignancy. RECOMMENDATION: Annual screening mammography is recommended, unless clinically indicated sooner based on symptoms or change in physical exam. BIRADS 1: NEGATIVE This study was interpreted with the benefit of Computerized Aided Detection (CAD). Patient information is entered into the reminder system with a target due date for the next screening mammogram. Mammography is the most sensitive method for finding small breast cancers, but it does not detect the m all and is not a substitute for careful clinical examination. A negative mammogram does not negate a clinically suspicious finding and should not result in delay in biopsying a clinically suspicious a bnormality. "Our facility is accredited by the [employer] Mammography Program." Electronically signed by: Jorge Delgadillo DO (01/21/2022 10:20 AM) [id number]
== END ==
LOC: KCIC MAMMO 07:55
PROVIDERS: ATTEND Family Medicine
DX: Z12.31 Encounter for screening mammogram for malignant neoplasm of breast (principal)
CPT/HCPCS: 77063; 77067